=== PATIENT | female | born 1995 | race Caucasian/White ===

== ENCOUNTER 2018-01-04 16:21 | Emergency (ER) | payer OTHER, MEDICAID ==
--- NOTE | 2018-01-04 16:51 | ER Document Report ---
ED Medical Screen (RME) - General Chief Complaint: Lower Abdominal Pain Stated Complaint: LOWER ABDOMINAL PAIN Time Seen by Provider: 01/04/18 16:47 Mode of Arrival: Ambulatory Information source: Patient Notes: 22-year-old female presents emergency department complaints of suprapubic abdominal pain that has been intermittent for the last 2 months. Patient is coming to the ER because it is worse today. It is a sharp and stabbing sensation located in the suprapubic area. No radiation of the pain. Patient states that walking increases the pain. No alleviating factors. Patient has not taken any medication for her discomfort. Patient states that she has had some diarrhea and constipation associated with the pain. She has been having intermittent spotting. Patient states that she has an IUD in place. She had a workup at an urgent care 3 weeks ago. Patient states that they tested her for sexually transmitted diseases and that came back negative. Patient denies any abnormal vaginal discharge. I have greeted and performed a rapid initial assessment of this patient. A comprehensive ED assessment and evaluation of the patient, analysis of test results and completion of the medical decision making process will be conducted by additional ED providers. PHYSICAL EXAMINATION: GENERAL: Well-appearing, well-nourished and in no acute distress. HEAD: Atraumatic, normocephalic. EYES: Pupils equal round extraocular movements intact, conjunctiva are normal. ENT: Nares patent NECK: Normal range of motion LUNGS: No respiratory distress Musculoskeletal: Normal range of motion NEUROLOGICAL: Normal speech, normal gait. PSYCH: Normal mood, normal affect. SKIN: Warm, Dry, normal turgor, no rashes or lesions noted. TRAVEL OUTSIDE OF THE [place] IN LAST 30 DAYS: No - Related Data Allergies/Adverse Reactions: No Known Allergies Allergy (Unverified 01/04/18 16:24) Past Medical History - Social History Chew tobacco use (# tins/day): No Frequency of alcohol use: None Drug Abuse: None Renal/ Medical History: Denies: Hx Peritoneal Dialysis Physical Exam - Vital signs Vitals: Temp Pulse Resp BP Pulse Ox 98.6 F 91 16 131/76 H 98 01/04/18 16:35 01/04/18 16:35 01/04/18 16:35 01/04/18 16:35 01/04/18 16:35 Course - Vital Signs Vital signs: Temp Pulse Resp BP Pulse Ox 98.6 F 91 16 131/76 H 98 01/04/18 16:35 01/04/18 16:35 01/04/18 16:35 01/04/18 16:35 01/04/18 16:35
[2018-01-04 17:21] LABS: APPEARANCE,URINE SLIGHTLY-CLOUDY; BILIRUBIN,URINE NEGATIVE (NEGATIVE); COLOR,URINE YELLOW; GLUCOSE, URINE NEGATIVE (NEGATIVE); KETONES,URINE NEGATIVE (NEGATIVE); LEUKOCYTE ESTERASE,URINE SMALL (NEGATIVE); NITRITE,URINE NEGATIVE (NEGATIVE); PROTEIN,URINE NEGATIVE (NEGATIVE); URINE SPECIFIC GRAVITY 1.019; UROBILINOGEN,URINE NEGATIVE mg/dL (<2.0)
--- NOTE | 2018-01-04 17:31 | ER Document Report ---
ED GI/ - General Chief Complaint: Lower Abdominal Pain Stated Complaint: LOWER ABDOMINAL PAIN Time Seen by Provider: 01/04/18 16:47 Mode of Arrival: Ambulatory Information source: Patient Notes: Patient presents complaining of lower pelvic pain for the past 2-1/2 months. Patient states pain is been off and on but typically occurs at least once a week. Patient denies any urinary symptoms or vaginal discharge. Patient does report occasional spotting since having her IUD placed 6 months ago. Patient states she was evaluated for this recently about 3 weeks ago and had negative STD test performed. TRAVEL OUTSIDE OF THE [place] IN LAST 30 DAYS: No - HPI Patient complains to provider of: Pelvic pain, Vaginal bleeding. No: , Vaginal discharge Timing/Duration: Waxing and waning Quality of pain: Achy Pain Level: 3 Vaginal bleeding (Compared to normal period): Spotting Menstrual period history: denies: Sexual history: Active Associated symptoms: denies: Dysuria, Fever, Nausea, Urinary hesitancy, Urinary frequency, Urinary retention, Urinary urgency, Vaginal discharge, Vomiting Exacerbated by: Denies Relieved by: Denies Similar symptoms previously: No Recently seen / treated by doctor: Yes - Related Data Allergies/Adverse Reactions: No Known Allergies Allergy (Unverified 01/04/18 16:24) Past Medical History - General Information source: Patient - Social History Smoking Status: Never Smoker Chew tobacco use (# tins/day): No Frequency of alcohol use: None Drug Abuse: None Occupation: None Lives with: Family Family History: Reviewed & Not Pertinent Patient has suicidal ideation: No Patient has homicidal ideation: No - Medical History Medical History: Negative Renal/ Medical History: Denies: Hx Peritoneal Dialysis Surgical Hx: Negative Review of Systems - Review of Systems Constitutional: No symptoms reported. denies: Fever EENT: No symptoms reported Cardiovascular: No symptoms reported Respiratory: No symptoms reported. denies: Cough Gastrointestinal: Abdominal pain. denies: Diarrhea, Nausea, Vomiting Genitourinary: No symptoms reported. denies: Dysuria, Flank pain Female Genitourinary: Vaginal bleeding. denies: , Vaginal discharge Musculoskeletal: No symptoms reported. denies: Back pain Skin: No symptoms reported Hematologic/Lymphatic: No symptoms reported Neurological/Psychological: No symptoms reported Physical Exam - Vital signs Vitals: Temp Pulse Resp BP Pulse Ox 98.6 F 91 16 131/76 H 98 10/15/18 16:35 01/04/18 16:35 01/04/18 16:35 01/04/18 16:35 01/04/18 16:35 - General General appearance: Appears well, Alert In distress: None - HEENT Head: Normocephalic, Atraumatic Eyes: Normal Conjunctiva: Normal Nasal: Normal Mouth/Lips: Normal Mucous membranes: Normal - Respiratory Respiratory status: No respiratory distress Chest status: Nontender Breath sounds: Normal. No: Rales, Rhonchi, Stridor, Wheezing Chest palpation: Normal - Cardiovascular Rhythm: Regular Heart sounds: S1 appreciated, S2 appreciated Murmur: No - Abdominal Inspection: Normal Distension: No distension Bowel sounds: Normal Tenderness: Tender - suprapubic Organomegaly: No organomegaly - Genitourinary External exam: Normal Speculum exam: Cervix closed Vaginal bleeding: None Bimanuel exam: Cervical motion tender. No: Adnexal tenderness Notes: Patient with long appearing wires to IUD - Back Back: Normal, Nontender. No: CVA tenderness - Extremities General upper extremity: Normal inspection, Normal strength General lower extremity: Normal inspection, Normal strength - Neurological Neuro grossly intact: Yes Cognition: Normal [place] Coma Scale Eye Opening: Spontaneous [place] Coma Scale Verbal: Oriented [place] Coma Scale Motor: Obeys Commands [place] Coma Scale Total: 15 - Psychological Associated symptoms: Normal affect, Normal mood - Skin Skin Temperature: Warm Skin Moisture: Dry Skin Color: Normal Course - Re-evaluation Re-evalutation: 01/04/18 18:54 Patient with very long wires noted to IUD on pelvic examination. Review of ultrasound report does demonstrate that IUD seems to be very low-lying. Patient states that she had previously had the wires to her IUD trimmed. Discussed options with patient, patient prefers to have IUD removed here today. Patient advised that she will need a backup control method. Patient verbalized understanding and agrees with plan of care. IUD was removed with sponge forceps with gentle traction. Patient tolerated well. - Vital Signs Vital signs: Temp Pulse Resp BP Pulse Ox 98.6 F 88 16 112/76 100 01/04/18 19:12 01/04/18 19:12 01/04/18 19:12 01/04/18 19:12 01/04/18 19:12 - Laboratory Result Diagrams: 01/04/18 17:47 10/15/18 17:47 Laboratory results interpreted by me: 01/04/18 17:00 Ur Leukocyte Esterase SMALL H Discharge - Discharge Clinical Impression: Pelvic pain, Encounter for IUD removal Condition: Stable Disposition: HOME, SELF-CARE Instructions: Pelvic Pain ([facility]) Additional Instructions: Return immediately for any new or worsening symptoms Followup with your primary care provider, call tomorrow to make a followup appointment Follow-up with your office copy selector for a backup control method Referrals: LISY SKY DO [Primary Care Provider] - Follow up as needed [facility] [Provider Group] - Follow up as needed
[2018-01-04 18:02] LABS: ABSOLUTE BASOPHILS # (AUTO) 0.1 10^3/uL (0.0-0.2); ABSOLUTE EOSINOPHILS # (AUTO) 0.3 10^3/uL (0.0-0.6); ABSOLUTE LYMPHOCYTES (AUTO) 2.5 10^3/uL (0.5-4.7); ABSOLUTE MONOCYTES (AUTO) 0.6 10^3/uL (0.1-1.4); ABSOLUTE NEUT (AUTO) 3.9 10^3/uL (1.7-8.2); BASOPHILS % (AUTO) 0.9 % (0-2); EOSINOPHILS % (AUTO) 4.7 % (0-6); HEMATOCRIT 40.4 % (36.0-47.0); HEMOGLOBIN 13.9 g/dL (12.0-15.5); LYMPHOCYTES % (AUTO) 33.9 % (13-45); MEAN CORPUSCULAR HEMOGLOBIN 28.6 pg (27.0-33.4); MEAN CORPUSCULAR HGB CONC 34.5 g/dL (32.0-36.0); MEAN CORPUSCULAR VOLUME 83 fl (80-97); MONOCYTES % (AUTO) 7.6 % (3-13); PLATELET COUNT 277 10^3/uL (150-450); RED BLOOD COUNT 4.87 10^6/uL (3.72-5.28); RED CELL DISTRIBUTION WIDTH 13.8 % (11.5-14.0); SEGMENTED NEUTROPHILS % (AUTO) 52.9 % (42-78); TOTAL CELLS COUNTED % (AUTO) 100 %; WHITE BLOOD COUNT 7.4 10^3/uL (4.0-10.5)
[2018-01-04 18:26] LABS: ANION GAP 10 (5-19); BLOOD UREA NITROGEN 20 mg/dL (7-20); CALCIUM 9.5 mg/dL (8.4-10.2); CARBON DIOXIDE 25 mmol/L (22-30); CHLORIDE 105 mmol/L (98-107); GLUCOSE 84 mg/dL (75-110); POTASSIUM 4.2 mmol/L (3.6-5.0); SODIUM 140.3 mmol/L (137-145)
[2018-01-04 18:39] LABS: T.VAGINALIS (WET MOUNT) NO TRICHOMONAS SEEN
[2018-01-04 18:40] LABS: WBCS (WET MOUNT) 1+ WBCS SEEN; YEAST (WET MOUNT) NO YEAST SEEN
--- NOTE | 2018-01-04 18:41 | RADIOLOGY REPORT (SQ) ---
EXAM DESCRIPTION: U/S NON OB PEL TV W/DOPPLER COMPLETED DATE/TIME: 01/04/2018 6:21 pm REASON FOR STUDY: pelvic pain, eval IUD COMPARISON: None. TECHNIQUE: Dynamic and static grayscale images acquired of the pelvis via transvaginal approach and recorded on PACS. Additional selected color Doppler and spectral images recorded. LIMITATIONS: None. FINDINGS: UTERUS: Contour normal. No mass. ENDOMETRIAL STRIPE: IUD appears to be somewhat low lying. There is small amount of fluid in the endo metrial canal. CERVIX: 1.8 cm. No nabothian cysts. RIGHT OVARY AND DOPPLER: Normal size. No worrisome masses. Normal arterial vascular flow without evid ence for torsion. LEFT OVARY AND DOPPLER: Normal size. No worrisome masses. Normal arterial vascular flow without evide nce for torsion. FREE FLUID: None noted. OTHER: No other significant finding. MEASUREMENTS: UTERUS: 7.4 x 4.4 x 2.8 cm. ENDOMETRIAL STRIPE: 2 mm. RIGHT OVARY: 3.8 x 2.1 x 2 cm. LEFT OVARY: 3.1 x 1.5 x 2.3 cm. IMPRESSION: The study is essentially normal. The IUD is somewhat low lying. TECHNICAL DOCUMENTATION: JOB ID: [id number] [employer]- All Rights Reserved Rev-08/07 Reading location - IP/workstation name: [email or web address]
[2018-01-04 19:13] VITALS: BP 112/76
[2018-01-04 19:58] LABS: CHLAM PCR NOT DETECTED (NOT DETECT); GON PCR NOT DETECTED (NOT DETECT)
== END 2018-01-04 19:13 | disposition home or self-care (01) ==
LOC: ER 16:21
DX: Z30.432 Encounter for removal of intrauterine contraceptive device (principal); R10.30 Lower abdominal pain, unspecified; R10.2 Pelvic and perineal pain; N93.8 Other specified abnormal uterine and vaginal bleeding
CPT/HCPCS: 36415; 76830; 80048; 81001; 81025; 85025; 87210; 87491; 87591; 93976; 99284

== ENCOUNTER 2018-05-06 04:28 | Emergency (ER) | payer OTHER, MEDICAID ==
--- NOTE | 2018-05-06 06:35 | ER Document Report ---
ED General - General Chief Complaint: Ear Pain Stated Complaint: RIGHT EAR PAIN Time Seen by Provider: 05/06/18 06:05 Primary Care Provider: LISY SKY DO [Primary Care Provider] - Follow up in 3-5 days TRAVEL OUTSIDE OF THE [place] IN LAST 30 DAYS: No - HPI Patient complains to provider of: Right ear pain Notes: Patient coming in for right ear pain. Patient states ongoing for greater than 48 hours. Patient states was seen in the local urgent care started on steroids for she is taken 1 dose however no improvement of her symptoms therefore came to the ER for further evaluation does endorse nasal congestion and rhinorrhea denies any recent air travel or scuba diving denies any trauma denies any fevers chills nausea vomiting diarrhea. Patient is currently breast-feeding her [id number] - Related Data Allergies/Adverse Reactions: No Known Allergies Allergy (Verified 05/06/18 04:29) Past Medical History - Social History Smoking Status: Never Smoker Frequency of alcohol use: None Drug Abuse: None Family History: Reviewed & Not Pertinent Patient has suicidal ideation: No Patient has homicidal ideation: No Renal/ Medical History: Denies: Hx Peritoneal Dialysis Review of Systems - Review of Systems Constitutional: No symptoms reported EENT: Ear pain Cardiovascular: No symptoms reported Respiratory: No symptoms reported Gastrointestinal: No symptoms reported Genitourinary: No symptoms reported Female Genitourinary: No symptoms reported Musculoskeletal: No symptoms reported Skin: No symptoms reported Hematologic/Lymphatic: No symptoms reported Neurological/Psychological: No symptoms reported -: Yes All other systems reviewed and negative Physical Exam - Vital signs Vitals: Temp Pulse Resp BP Pulse Ox 97.8 F 96 16 130/83 H 98 05/06/18 04:33 05/06/18 04:33 05/06/18 04:33 05/06/18 04:33 05/06/18 04:33 Interpretation: Normal - General General appearance: Appears well, Alert - HEENT Head: Normocephalic, Atraumatic Eyes: Normal Conjunctiva: Normal Cornea: Normal Extraocular movements intact: Yes Eyelashes: Normal Pupils: PERRL Ears: Normal External canal: Normal Tympanic membrane: Serous effusion - Right TM no signs of purulent effusion no signs of infection left is normal Sinus: Normal Nasal: Normal Mouth/Lips: Normal Pharynx: Normal Neck: Normal - Respiratory Respiratory status: No respiratory distress Chest status: Nontender Breath sounds: Normal Chest palpation: Normal - Cardiovascular Rhythm: Regular Heart sounds: Normal auscultation Murmur: No - Abdominal Inspection: Normal Distension: No distension Bowel sounds: Normal Tenderness: Nontender Organomegaly: No organomegaly - Back Back: Normal, Nontender - Extremities General upper extremity: Normal inspection, Nontender, Normal color, Normal ROM, Normal temperature General lower extremity: Normal inspection, Nontender, Normal color, Normal ROM, Normal temperature, Normal weight bearing. No: Danelle's sign - Neurological Neuro grossly intact: Yes Cognition: Normal Orientation: AAOx4 [place] Coma Scale Eye Opening: Spontaneous [place] Coma Scale Verbal: Oriented [place] Coma Scale Motor: Obeys Commands [place] Coma Scale Total: 15 Speech: Normal Motor strength normal: LUE, RUE, LLE, RLE Sensory: Normal - Psychological Associated symptoms: Normal affect, Normal mood - Skin Skin Temperature: Warm Skin Moisture: Dry Skin Color: Normal Course - Re-evaluation Re-evalutation: 05/06/18 13:54 Patient more likely has a URI causing her right ear pain. No need for any antibiotics seen on physical examination at this time. Patient was recommended to continue her previous to prescribed steroids follow-up with her primary care physician Carla Ferguson for pain control. - Vital Signs Vital signs: Temp Pulse Resp BP Pulse Ox 97.6 F 78 16 128/70 H 99 05/06/18 06:40 05/06/18 06:40 05/06/18 06:40 05/06/18 06:40 05/06/18 06:40 Discharge - Discharge Clinical Impression: Otalgia, right ear, Acute viral sinusitis Condition: Good Disposition: HOME, SELF-CARE Instructions: Viral Syndrome ([facility]) Additional Instructions: Your symptoms are likely due to a virus. However, it is important that you continue to monitor for any concerning symptoms including inability to tolerate oral fluids, less than 2 urinations in a 24 hour period, and lethargy Please continue to offer oral solutions such as Pedialyte, water, gatorade. It is okay if you do not want to eat over the next several days but it is important that they continue to drink fluids. You may also provide a medication such as ibuprofen (Motrin) or acetaminophen (Tylenol) per box instructions for fever. Please also follow-up with your doctor in the next several days. Please take the medications given to you as prescribed. Prescriptions: Ondansetron [Zofran Odt 4 mg Tablet] 4 mg PO Q4HP PRN #30 tab.rapdis PRN Reason: Forms: Return to Work Referrals: LISY SKY DO [Primary Care Provider] - Follow up in 3-5 days
[2018-05-06 06:44] VITALS: BP 128/70
== END 2018-05-06 06:51 | disposition home or self-care (01) ==
LOC: ER 04:28
DX: J01.90 Acute sinusitis, unspecified (principal); B97.89 Other viral agents as the cause of diseases classified elsewhere; H92.01 Otalgia, right ear; R09.81 Nasal congestion; J34.89 Other specified disorders of nose and nasal sinuses
CPT/HCPCS: 99282